=== PATIENT | male | born 1945 | race Caucasian/White ===

== ENCOUNTER → 2025-04-14 12:02 | Outpatient (REF) | payer MEDICARE, OTHER, SELFPAY ==
[2025-04-14 12:46] LABS: % Basophils 0.7 % (0-2); % Eosinophils 0.9 % (0-6); % Immature Granulocytes 0.4 % (0-0.5); % Lymphocytes 22.3 % (20.5-51.1); % Monocytes 6.6 % (1.7-9.3); % Neutrophils 69.1 % (42.2-75.2); Absolute Monocytes 0.3 10^3/uL (0.1-0.6); Absolute Neutrophils 3.2 10^3/uL (1.4-6.5); Hematocrit 39.2 % (39.0-52.0); Hemoglobin 13.2 g/dL (13.0-18.0); Mean Corp Hgb Conc. 33.7 g/dL (33.0-37.0); Mean Corpuscular Hgb 31.6 pg (27.0-31.0); Mean Corpuscular Volume 93.8 fL (80.0-94.0); Mean Platelet Volume 8.9 fL (7.4-10.4); Nucleated Red Blood Cells % 0 % (-); Platelet Count 157 10^3/uL (130-400); Red Blood Cell Count 4.18 10^6/uL (4.70-6.10); Red Cell Dist. Width 17.1 % (11.5-14.5); White Blood Cell Count 4.6 10^3/uL (4.8-10.8)
[2025-04-14 12:53] LABS: PT 17.6 Sec (11.4-14.6)
[2025-04-14 13:03] LABS: ALT (SGPT) 13 U/L (0-50); AST (SGOT) 20 U/L (17-59); Albumin 4.7 g/dl (3.5-5.0); Alkaline Phosphatase 66 U/L (38-126); Blood Urea Nitrogen 16 mg/dl (9-20); Calcium 10.2 mg/dl (8.4-10.2); Carbon Dioxide 29 mmol/L (22-30); Chloride 101 mmol/L (98-107); Glucose 118 mg/dl (70-99); Magnesium 1.6 mg/dl (1.6-2.3); Potassium 4.7 mmol/L (3.5-5.1); Sodium 137 mmol/L (135-145); Total Bilirubin 1.4 mg/dl (0.2-1.3); Total Protein 7.7 g/dl (6.3-8.2); eGFR > 60.00
== END ==
LOC: SDSPAT 12:02
PROVIDERS: ATTENDING PHYSICIAN Internal Medicine Cardiovascular Disease; FAMILY PHYSICIAN Family Medicine; OTHER PHYSICIAN Internal Medicine
DX: I48.91 Unspecified atrial fibrillation (principal)
CPT/HCPCS: 36415; 75572; 80053; 83735; 85025; 85610; 86850; 86900; 86901; 93005; Q9967

== ENCOUNTER 2025-05-09 16:13 | Inpatient (IN) | payer MEDICARE, OTHER, SELFPAY ==
[2025-05-09] VITALS (17 sets, daily range): BP systolic 121–147; BP diastolic 70–107; BMI 28.1
--- NOTE | 2025-05-09 10:58 | ITS.CL.ABL ---
Lead Setter - Ablation
Ablation
Procedure Report:
Primary Sql Server Bi Developer: Dr Wil Bowers
Procedure Date: 05/09/2025
Patient History:
Patient is a pleasant 79-year-old male with a past medical history significant for AAA (thoracic), hypertension, history PE, PVC, hyperlipidemia, HFpEF, and symptomatic persistent atrial fibrillation..
See H&P for complete details.
Indication:
Symptomatic persistent atrial fibrillation
Heart failure
Arrhythmia Specific History:
Prior Medical Therapies for Rate and Rhythm Control:
X Beta-rosario
[ ] Calcium channel-rosario
[ ] Amiodarone
[ ] Dronederone
[ ] Sotalol
[ ] Flecainide
[ ] Dofetilide
[ ] Options limited by bradycardia
[ ] Options limited by comorbid renal disease
Prior Procedural Therapies for AF/AFL:
[ ] Cardioversion
[ ] Pulmonary Vein Isolation
[ ] Posterior Wall Isolation
[ ] Additional lines (Specify)
[ ] Surgical Marcos-MAZE or PVI (Specify)
Procedure Performed:
X AF ablation procedure (62432) -- includes LA/CS pacing, trans-septal, 3D mapping, + ICE
[ ] +IV drug (30427)
[ ] +Other Arrhythmia (67118)
X +Other AF Line/ablation (43517 x2) -- floor line, roof line, posterior wall isolation
Risks and expected recovery has been explained in detail. Alternative options have been explored, and in a shared-decision making fashion we have decided that this was the most appropriate procedure.
Method
NPO status confirmed. Grounding pad applied. Defibrillator pads applied. Continuous surface ECG, pulse oximetry, and blood pressure were monitored. Procedure was performed under general anesthesia, with anesthesia services.
Both groins were clipped, prepped with Chloraprep, and draped in sterile fashion. Time out was called. Local anesthesia administered with bupivacaine. The right femoral vein was accessed for catheter placement, using ultrasound guidance (images
saved to record), micro-puncture needle/wire, and modified seldinger technique. 3 sheaths were placed. The following catheters were used:
[ ] Tacticath SE (D/F Curve) ablation catheter
X Viewflex 9Fr ICE catheter
X Inquiry decapolar 6Fr diagnostic catheter
[ ] CRD Hex 6Fr
[ ] Arctic Front Advance Cryoballoon ([ ]28mm[ ]23mm)
[ ] Achieve Advance mapping catheter ([ ]15mm[ ]20mm)
X FlexCath Contour 10 Fr with PulseSelect PFA Catheter
X Advisor HD Grid Mapping Catheter, SE
[ ] AcusWhere Was it Filmed AcuNav 8 Fr ICE catheter
[ ]Other: [ ]
Intracardiac ultrasound (ICE) was carefully advanced into the right atrium to guide sheath placement over a J-wire, catheter placement, guide trans-septal puncture, identify potential complications, identify anatomic structures and ensure proper
contact between ablation catheter and tissue.
Heparin was given prior to trans-septal puncture. Heparin was given to achieve and maintain a target ACT of 300-400 seconds throughout the procedure.
Trans-septal access was performed under ICE guidance. The trans-septal puncture was performed with a SafeSept wire through a Brockenbrough needle assembly through the steerable sheath. The wire was visualized as it entered the LSPV and system
advanced under ICE guidance and fluoroscopy into the LA. The Brockenbrough needle assembly, SafeSept wire and sheath dilator were removed under negative pressure. LA pressure was measured and recorded.
ICE and 3D mapping was performed to identify relevant cardiac structures. A careful 3D map was created to assess for regions of low-voltage and abnormal electrogram signals using HD grid mapping catheter and PulseSelect catheter. Additional mapping
was performed as outlined below.
Prior to ablation, glycopyrrolate was provided. PulseSelect catheter was advanced over J-wire to the ostium of each vein. Pulmonary vein isolation was performed with ostial and antral lesions in a circumferential manner. Contact was visualized via
EAM, ICE, fluoroscopy, and EGM signals. Posterior wall isolation was performed by anchoring the J-wire within the pulmonary vein and placing the PulseSelect catheter in contact with the posterior wall as visualized by aforementioned methods.
Following completion of ablation lesions, sinus rhythm was restored with a 200J synchronized DCCV. However, early recurrence to AF noted. Repeat synchronized 300J DCCV resulted in similar recurrence of AF. Mapping in AF was performed with HD grid to
reassess for area of early reconnection. In AF, pulmonary veins and posterior wall did not demonstrate EGM evidence of AF. Repeat synchronized 360J DCCV performed which maintained SR. SR remained through the remainder of the case. A post-ablation
voltage/activation map was performed in sinus rhythm. Entrance and exit block were confirmed for each vein and the posterior wall.
Catheter and sheath were removed from the left atrium and post-ablation intracardiac echo evaluation was consistent with pre-ablation with no changes and no pericardial effusion and there is no left atrial thrombus or left ventricle thrombus seen.
Electrophysiology study was performed. Hemostasis was obtained with figure of 8 stitch for each groin and with manual pressure. Protamine was used for reversal.
Estimated Blood Loss
5 mL
Complications
None
Fluoroscopy: 1.4 minutes; 5.21 mGy; DAP 0.631
LA Pressure: Pre 8 mmHg, post 6 mmHg
Baseline Intervals:
Rhythm: AF
QRS: 85 ms
QT: 400 ms
Post-Procedure Intervals:
SD: 122 ms
QRS: 89 ms
QT: 442 ms
QTc: 529 ms
A-A: 698 ms
R-R: 698 ms
AVWB: 470 ms
AVNERP: 600/400 ms
AERP: 600/200 ms
Recommendations
- Bedrest with straight-leg precautions as ordered
- Anticipate same day discharge if patient meeting clinical metrics
- Resume home medications as indicated
- Ok to resume anticoagulation tonight if patient and groin sites stable
- PPI daily for 30 days
- Plan for follow-up in office as scheduled
Paras Ferguson, , FACC, RS
Clinical Cardiac Speedboat Driver
cc: Dr Wil Bowers; Dr Shana Luna
[2025-05-09 11:49] LABS: ACT-LR - POC 324 Seconds (116-155)
[2025-05-09 12:08] LABS: ACT-LR - POC 308 Seconds (116-155)
[2025-05-09 12:35] LABS: ACT-LR - POC 326 Seconds (116-155)
[2025-05-09 13:05] LABS: ACT-LR - POC 137 Seconds (116-155)
--- NOTE | 2025-05-09 13:35 | PTCARENOTE ---
Post procedure EKG showing A fib with PVCs, Linh WHITAKER made aware- evaluating EKG and will speak with Dr Ferguson
[2025-05-09] MEDS: ANESTHETIC LOZENGE 1 LOZENGE PO ×2 (14:22→22:26)
--- NOTE | 2025-05-09 15:24 | W.CARD.TIKOS ---
Initiate Tikosyn
-
I verify that the patient has not taken any verapamil (Isoptin/Calan), ketoconazole (Nizoral), cimetidine (Tagamet), trimethoprim (Trimpex), trimethoprim/sulfamethoxazole (Bactrim), megesterol (Megace), prochlorperazine (Compazine),
hydrochlorothiazide (HCTZ), dolutegravir (Tivicay) or any Class I or Class III anti-arrhythmic within the last three days
AND
I verify that the patient has not taken amiodarone within the last THREE months, or that the patient's amiodarone plasma concentration is <0.3 mcg/mL.
Does patient have a Ventricular Conduction Abnormality: No
I have assessed the baseline QTc interval (using QT for heart rate less than 60 bpm) and deemed the patient is appropriate for Dofetilide therapy. I understand that Tikosyn is contraindicated if the QTc is >440msec (500msec in patients with
ventricular conduction abnormalities).
Baseline QTc (in msec): 513
QTc interval is greater than 440msec without conduction abnormality OR greater than 500msec with a conduction abnormality, but acceptable to proceed per Cardiology attending.
Ordering Physician: Naseem Ferguson
--- NOTE | 2025-05-09 16:00 | PTCARENOTE ---
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 Pt AAOX3- denies pain. resting comfortably in bed. currently bedrest- figure 8 suture intact. Afib with frequent pvcs on telemetry, heart rate 70-80s. pulses palpable. +1 edema in lower
extremties. pt on room air, sat 96%. lung sounds clear. active bowel sounds. voiding without difficulty. see worklist for full nursing assessment and interventions. pt updated on plan of care, oriented to room and unit.
[2025-05-09] MEDS: TIKOSYN 500 MCG PO (18:06)
[2025-05-09] MEDS: ELIQUIS 5 MG PO (20:03)
[2025-05-09] MEDS: TYLENOL 650 MG PO (20:17)
--- NOTE | 2025-05-09 22:04 | PTCARENOTE ---
Assumed care on pt at 1900, aaox3, denies pain or SOB, ambulating self in room with no c/o dizziness. Afib on the monitor, HR 70-90's. R groin site with CDI dressing, no swelling or ecchymosis noted, good distal pulses. EKG post tikosyn obtained.
Call ventura within reach, POC ongoing.
[2025-05-09] MEDS: DESYREL 25 MG PO (22:26)
[2025-05-10] VITALS (7 sets, daily range): BP systolic 111–128; BP diastolic 59–94; BMI 28.1
[2025-05-10] MEDS: MAALOX 30 ML PO (03:48)
[2025-05-10 04:16] LABS: Hematocrit 33.3 % (39.0-52.0); Hemoglobin 11.9 g/dL (13.0-18.0); Mean Corp Hgb Conc. 35.7 g/dL (33.0-37.0); Mean Corpuscular Hgb 33.2 pg (27.0-31.0); Mean Platelet Volume 9.3 fL (7.4-10.4); Platelet Count 111 10^3/uL (130-400); Red Blood Cell Count 3.58 10^6/uL (4.70-6.10); Red Cell Dist. Width 16.8 % (11.5-14.5)
[2025-05-10 04:43] LABS: Blood Urea Nitrogen 16 mg/dl (9-20); Calcium 9.4 mg/dl (8.4-10.2); Carbon Dioxide 22 mmol/L (22-30); Chloride 106 mmol/L (98-107); Estimated Creatinine Clearance 87 ml/min; Glucose 118 mg/dl (70-99); Potassium 4.2 mmol/L (3.5-5.1); Sodium 133 mmol/L (135-145); eGFR > 60.00
[2025-05-10] MEDS: TIKOSYN 500 MCG PO (05:59)
--- NOTE | 2025-05-10 06:22 | PTCARENOTE ---
Pt remained Afib with frequent pvc's overnight, HR 40's. Pt with hx sleep apnea, refusing Cpap at night, 2L O2 applied via NC. Pox 99%. Right groin dsg remains clean and intact. 2nd dose of Tikosyn administered this morning at 0600.
--- NOTE | 2025-05-10 08:00 | PTCARENOTE ---
Assumed care of pt from prev nsg shift; Pt AAOX3 w/no c/o CP or SOB. Pt's VSS w//HR in the 60's-70's & BP 128/64 this AM. Pt is Afib at a controlled rate on telemetry monitoring. Pt rec'd dose #2 of Tikosyn from prev nsg shift at 0600. Discussed
plan of care w/pt incl EKG 2 hrs post Tikosyn does. Pt verbalized his understanding. Pt w/call ventura within reach. Plan of care ongoing.
[2025-05-10] MEDS: PROTONIX 40 MG PO (08:34)
[2025-05-10] MEDS: TOPROL XL 50 MG PO (08:34)
[2025-05-10] MEDS: LIPITOR 40 MG PO (08:35)
[2025-05-10] MEDS: COZAAR 50 MG PO (08:35)
[2025-05-10] MEDS: ELIQUIS 5 MG PO ×2 (08:35→20:40)
[2025-05-10] MEDS: ALDACTONE 25 MG PO (08:35)
--- NOTE | 2025-05-10 09:35 | W.PN.CARDCBS ---
Addendum entered and electronically signed by Paras Ferguson DO 05/10/25 14:02:
I saw and examined the patient.
The Sodder's note was reviewed and I agree with the note.
Comment:
Patient seen and examined. No acute events overnight. Patient resting comfortably in bed without discomfort. Patient denies chest pain, shortness of breath, palpitations, or weakness.
Telemetry demonstrates AF with PVCs and brief NSVT; asymptomatic
GEN: No distress, awake, alert, oriented x3
HEENT: supple, anicteric, mmm, eomi
LUNGS: CTA B/L, no wheezes/rales
CV: Irreg, S1/S2, no murmur
ABD: soft, BS+, NT/ND
EXT: No cyanosis, clubbing, edema
NEURO: Gross non-focal
SKIN: Warm, pink, dry. No rash. R groin site c/d/i, soft, NTTP
EKG shows AF with PVCs; repeat this morning shows QT/QTc 530/488 on 500 mcg BID
A/P as below
Reduce dofetilide to 250 mcg BID
Reduce metoprolol succinate to 25 mg daily
Continue OAC with apixaban
Monitor on telemetry
DCCV
Original Note:
Today's Communication / Plan
-
continue tikosyn, reduce dose to 250mcg Q12H due to prolonged QTc, follow by EKG
reduce toprol dose to 25mg daily due to tay
continue eliquis
CV in AM
Impression / Plan
-
Primary Paralegal Legal Secretary: Dr. Bowers
Primary EP: Dr. Ferguson
Assessment:
Persistent atrial fibrillation
Status post cardioversion 02/2025
Oral anticoagulation with Eliquis
Status post PVI 05/09/25
afib post PVI s/p unsuccessful CV 05/09/25
tikosyn loading
PVCs
Sinus bradycardia
Hypertension
Hyperlipidemia
Thoracic aortic aneurysm
Chronic diastolic congestive heart failure
Mild to moderate AI
History of PE
VILLA, previously on CPAP
GERD
BPH
Daily alcohol intake
Echocardiogram 08/09/2024. Ejection fraction is 54%. Normal left ventricular size, wall thickness and function. Normal right ventricular size and function. Mild left atrial and right atrial dilation. RVSP 31 mmHg. Ascending aortic dilation. Mild to
moderate aortic insufficiency. Mitral annular calcification mild mitral regurgitation.
Plan:
- Status post PVI 05/09/2025. Was noted to be in A-fib post ablation and underwent unsuccessful cardioversion x 2, third shock was temporarily successful in converting patient to sinus rhythm, however reverted to A-fib in recovery area. Options
were discussed with patient and he opted to stay for Tikosyn loading
- QTc appears prolonged by EKG this morning, so will reduce Tikosyn dose to 250 mcg every 12 hours
- Also noted to have some bradycardia with heart rates into the 30s at times. Will reduce outpatient Toprol dose to 25 mg daily and follow
- He has known obstructive sleep apnea, however has upcoming appointment to get refitted for CPAP
- Continue Eliquis 5 mg twice daily
- will plan for CV in AM if remains in afib
- appears euvolemic. continue po lasix 20mg BID
- changed diet to regular at patient request
- d/w nursing
Progress Note - Paralegal Legal Secretary
Subjective
Date of Service: May 10, 2025
no complaints
Objective
Labs:
05/10/25 04:00
05/10/25 04:00
Labs
Hgb 11.9 g/dL (13.0-18.0) L 05/10/25 04:00
Hct 33.3 % (39.0-52.0) L 05/10/25 04:00
Plt Count 111 10^3/uL (130-400) L 05/10/25 04:00
Sodium 133 mmol/L (135-145) L 05/10/25 04:00
Potassium 4.2 mmol/L (3.5-5.1) 05/10/25 04:00
BUN 16 mg/dl (9-20) 05/10/25 04:00
Creatinine 0.7 mg/dL (0.7-1.3) 05/10/25 04:00
Glucose 118 mg/dl (70-99) H 05/10/25 04:00
Vital Signs and I&O:
Vital Signs
Temp Pulse Resp BP Pulse Ox
98.2 F 71 18 118/71 100
05/10/25 07:44 05/10/25 07:44 05/10/25 07:44 05/10/25 04:03 05/10/25 07:44
Vital Signs
Temp Pulse Resp BP Pulse Ox
98.2 F 71 18 118/71 100
05/10/25 07:44 05/10/25 07:44 05/10/25 07:44 05/10/25 04:03 05/10/25 07:44
Intake & Output
05/08/25 05/09/25 05/10/25 05/11/25
07:59 07:59 07:59 07:59
Intake Total 1959
Balance 1959
Physical Exam
Physical Exam
GEN: No distress, awake, alert, oriented x3
HEENT: supple, anicteric, mmm, eomi
LUNGS: CTA B/L, no wheezes/rales
CV: Irreg, S1/S2, no murmur
ABD: soft, BS+, NT/ND
EXT: No cyanosis, clubbing, edema
NEURO: Gross non-focal
SKIN: Warm, pink, dry. No rash. R groin site c/d/i, soft, NTTP
[2025-05-10] MEDS: TYLENOL 650 MG PO ×3 (11:05→20:44)
--- NOTE | 2025-05-10 13:53 | CM ---
spoke to pt in room, he is prev indep, lives with his in a 2 story home with one step to enter. he denies any dc planning needs or dme's. plan is for dc to home after dofetilide loading.
[2025-05-10] MEDS: TIKOSYN 250 MCG PO (17:13)
--- NOTE | 2025-05-10 19:56 | PTCARENOTE ---
Pt remains on tikosyn load, 3rd dose given at 1715, 2hr post EKG obtained and reading sinus tay with 1st degree AV block and occ PVC's, QT/QTc 528/500. Pt resting w/o any complaints at this time, VSS. SB on the monitor HR 50-60's. Call ventura within
reach.
[2025-05-10] MEDS: LASIX 20 MG PO (20:40)
[2025-05-10] MEDS: ANESTHETIC LOZENGE 1 LOZENGE PO (20:44)
[2025-05-10] MEDS: DESYREL 25 MG PO (21:54)
[2025-05-11 03:27] VITALS: BP 117/72
[2025-05-11] MEDS: TIKOSYN 250 MCG PO ×2 (04:58→15:55)
[2025-05-11 05:00] VITALS: BMI 28.0
--- NOTE | 2025-05-11 06:27 | PTCARENOTE ---
Pt SB with 1st degree HB and on the monitor, with frequent 2.0-2.7 sec pauses. HR 50's, 2L O2 via NC during sleep. Tikosyn #4 dose given this morning at 0500.
[2025-05-11 06:55] VITALS: BP 134/90
--- NOTE | 2025-05-11 08:18 | PTCARENOTE ---
Assumed care of pt from prev nsg shift; Pt AAOX3 w/no c/o CP or SOB. Pt's VSS w//HR in the 60's-70's & BP 128/64 this AM. Pt converted to SR yest & remains SR on telemetry monitoring this am. Pt rec'd dose #4 of Tikosyn from prev nsg shift & will
receive dose #5 later this afternoon. Pt anticipating D/C later this evening. Pt w/call ventura within reach. Plan of care ongoing.
--- NOTE | 2025-05-11 08:47 | W.PN.CARDCBS ---
Addendum entered and electronically signed by Makenzie Tubbs PA-C 05/12/25 16:16:
[id number]
Addendum entered and electronically signed by Paras Ferguson DO 05/11/25 10:15:
I saw and examined the patient.
The Packaging Operator's note was reviewed and I agree with the note.
Comment:
Patient seen and examined. No acute events overnight. Patient resting company in bed. Patient has chest pain, shortness breath, palpitations, weakness.
GENERAL: no acute distress
EYE: sclera anicteric
NECK: Supple, no JVD, no carotid bruit appreciated
ENT: normal nose, moist mucosal membranes
CARDIAC: Regular rate and rhythm, +S1/S2, no murmur, rubs, or gallops
CHEST/PULMONARY: Normal effort, clear breath sounds
ABDOMEN: Soft, without focal tenderness or distention
NEUROLOGICAL: Alert and oriented x3
SKIN: Warm and dry, no rash
PSYCH: Normal and appropriate interaction.
Telemetry conversion of AF to sinus rhythm on 05/10/2025 spontaneously remains in sinus rhythm rare PVCs
EKG this morning sinus bradycardia first-degree block with PVC/PAC; QT/QTc 478/493 ms (no significant change)
Patient bandar stable status post PVI/posterior wall isolation with possible ablation
Remains in sinus rhythm following spontaneous cardioversion on dofetilide; tolerating dofetilide 250 mcg twice daily with stable QT/QTc
If remains stable after next dose and EKG, will plan for discharge
Continue to monitor on telemetry
Encourage alcohol reduction, sleep apnea testing
Original Note:
Today's Communication / Plan
-
back in SR
continue tikosyn 250mcg Q12H
plan for DC later today
Impression / Plan
-
Primary Garnisher: Dr. Bowers
Primary EP: Dr. Ferguson
Assessment:
Persistent atrial fibrillation
Status post cardioversion 02/2025
Oral anticoagulation with Eliquis
Status post PVI 05/09/25
afib post PVI s/p unsuccessful CV 05/09/25
tikosyn loading
PVCs
Sinus bradycardia
Hypertension
Hyperlipidemia
Thoracic aortic aneurysm
Chronic diastolic congestive heart failure
Mild to moderate AI
History of PE
VILLA, previously on CPAP
GERD
BPH
Daily alcohol intake
Echocardiogram 08/09/2024. Ejection fraction is 54%. Normal left ventricular size, wall thickness and function. Normal right ventricular size and function. Mild left atrial and right atrial dilation. RVSP 31 mmHg. Ascending aortic dilation. Mild to
moderate aortic insufficiency. Mitral annular calcification mild mitral regurgitation.
Plan:
- Status post PVI 05/09/2025. Was noted to be in A-fib post ablation and underwent unsuccessful cardioversion x 2, third shock was temporarily successful in converting patient to sinus rhythm, however reverted to A-fib in recovery area. Options
were discussed with patient and he opted to stay for Tikosyn loading
- converted to SR 05/10 and remains in SR with PVCs on review of tele overnight
- QTc stable by EKG this AM, follow. continue tikosyn 250mcg Q12H
- continue reduced dose toprol 25mg daily
- He has known obstructive sleep apnea, however has upcoming appointment to get refitted for CPAP
- Continue Eliquis 5 mg twice daily
- appears euvolemic. continue po lasix 20mg BID
- plan for DC later this evening after 5th dose if QTc remains stable
- OP cardiac follow up arranged
- d/w nursing
Progress Note - Garnisher
Subjective
Date of Service: May 11, 2025
no complaints. eager for DC
Objective
Labs:
05/10/25 04:00
05/10/25 04:00
Labs
Hgb 11.9 g/dL (13.0-18.0) L 05/10/25 04:00
Hct 33.3 % (39.0-52.0) L 05/10/25 04:00
Plt Count 111 10^3/uL (130-400) L 05/10/25 04:00
Sodium 133 mmol/L (135-145) L 05/10/25 04:00
Potassium 4.2 mmol/L (3.5-5.1) 05/10/25 04:00
BUN 16 mg/dl (9-20) 05/10/25 04:00
Creatinine 0.7 mg/dL (0.7-1.3) 05/10/25 04:00
Glucose 118 mg/dl (70-99) H 05/10/25 04:00
Vital Signs and I&O:
Vital Signs
Temp Pulse Resp BP Pulse Ox
97.8 F 60 16 134/90 100
05/11/25 07:31 05/11/25 07:30 05/11/25 07:31 05/11/25 06:55 05/11/25 07:31
Vital Signs
Temp Pulse Resp BP Pulse Ox
97.8 F 60 16 134/90 100
05/11/25 07:31 05/11/25 07:30 05/11/25 07:31 05/11/25 06:55 05/11/25 07:31
Intake & Output
05/09/25 05/10/25 05/11/25 05/12/25
07:59 07:59 07:59 07:59
Intake Total 1959 960 / 960
Balance 1959 960 / 960
Physical Exam
Physical Exam
GEN: No distress, awake, alert, oriented x3
HEENT: supple, anicteric, mmm, eomi
LUNGS: CTA B/L, no wheezes/rales
CV: Reg with ectopy, S1/S2, no murmur
ABD: soft, BS+, NT/ND
EXT: No cyanosis, clubbing, edema
NEURO: Gross non-focal
SKIN: Warm, pink, dry. No rash
--- NOTE | 2025-05-11 08:58 | W.DS.TRANS ---
DC Summary - Retail Equipment Associate
-
Discharge Instructions:
Discharge Diagnosis/Procedures AFib, s/p ablation, tikosyn load
Diet Low Cholesterol,Low Sodium
Driving Restrictions No driving for 24 hours
Specialty Instructions Weigh Daily
Instructions:
Stand-Alone Forms: DC Instructions- Cath/EP Lab
Changes to Home Medications: Yes
Discharge Medications:
DC Medications w/original date entered in [email or web address]
acetaminophen 500 mg tablet 1,000 mg PO Q6H PRN pain 04/07/25
apixaban 5 mg tablet (Eliquis) 5 mg PO BID 04/07/25
atorvastatin 40 mg tablet 40 mg PO DAILY 04/07/25
losartan 50 mg tablet 50 mg PO DAILY 04/07/25
omeprazole 40 mg capsule,delayed release 40 mg PO DAILY 04/07/25
spironolactone 25 mg tablet 25 mg PO DAILY 04/07/25
trazodone 50 mg tablet 25 mg PO HS 04/07/25
furosemide 20 mg tablet 20 mg PO BID 05/09/25
dofetilide 250 mcg capsule 250 mcg PO Q12H #60 caps 05/11/25
metoprolol succinate 25 mg tablet,extended release 24 hr 25 mg PO DAILY #1 tab 05/11/25
Home Medication Changes
tikosyn is new
toprol was decreased to 25mg daily
Pending Results: No
[2025-05-11] MEDS: COZAAR 50 MG PO (09:14)
[2025-05-11] MEDS: PROTONIX 40 MG PO (09:14)
[2025-05-11 10:47] VITALS: BP 111/100
[2025-05-11] MEDS: TOPROL XL 25 MG PO (11:13)
[2025-05-11] MEDS: LASIX 20 MG PO ×2 (11:13→15:16)
[2025-05-11] MEDS: TYLENOL 650 MG PO ×2 (11:13→15:16)
[2025-05-11] MEDS: ELIQUIS 5 MG PO (11:13)
[2025-05-11] MEDS: ALDACTONE 25 MG PO (11:13)
[2025-05-11] MEDS: LIPITOR 40 MG PO (11:13)
--- NOTE | 2025-05-11 11:13 | CM ---
CM following for DC planning needs.
Met w/ patient at bedside. He is anticipating DC and feels prepared to leave.
He offers no concerns or needs at this time. Will be driving to [facility] later today.
I called patient's pharmacy, they do NOT have Dofetilide in stock but will order and it will be in stock by tomorrow. We will send him home with x3 d supply.
Plan is for home, no needs.
[2025-05-11 14:57] VITALS: BP 143/82
--- NOTE | 2025-05-11 18:25 | PTCARENOTE ---
Completed pt's ordered 2hr post dose #5 Tikosyn EKG; [id number]. Pt continues to be in SR w/1st deg AVB & PVC's. Pt's IV line & telemetry removed. D/C instructions discussed w/pt & pt's spouse. Pt escorted out via WC by staff w/ driving pt to their
[facility] in [place]. Pt left w/personal belongins incl cell phone & correspondence analyst & 3 doses of Tikosyn to carry pt over until his pharmacy has his prescription.
== END 2025-05-11 18:25 | disposition home or self-care (01) | DRG 274 ==
LOC: IVU 16:13
PROVIDERS: Nurse Practitioner; ADMITTING PHYSICIAN Internal Medicine Cardiovascular Disease; FAMILY PHYSICIAN Family Medicine
PROC: 5A2204Z Restoration of Cardiac Rhythm, Single (ICD-10-PCS; 2025-05-09)
PROC: 3E0DXRZ Introduction of Antiarrhythmic into Mouth and Pharynx, External Approach (ICD-10-PCS; 2025-05-09)
PROC: 02583ZF Destruction of Conduction Mechanism using Irreversible Electroporation, Percutaneous Approach (ICD-10-PCS; 2025-05-09)
PROC: 02K83ZZ Map Conduction Mechanism, Percutaneous Approach (ICD-10-PCS; 2025-05-09)
PROC: 4A0234Z Measurement of Cardiac Electrical Activity, Percutaneous Approach (ICD-10-PCS; 2025-05-09)
PROC: 4A023FZ Measurement of Cardiac Rhythm, Percutaneous Approach (ICD-10-PCS; 2025-05-09)
DX: I48.19 Other persistent atrial fibrillation (principal); I50.32 Chronic diastolic (congestive) heart failure; I49.3 Ventricular premature depolarization; I11.0 Hypertensive heart disease with heart failure; E78.5 Hyperlipidemia, unspecified; I71.20 Thoracic aortic aneurysm, without rupture, unspecified; I35.1 Nonrheumatic aortic (valve) insufficiency; I25.10 Atherosclerotic heart disease of native coronary artery without angina pectoris; G47.33 Obstructive sleep apnea (adult) (pediatric); K21.9 Gastro-esophageal reflux disease without esophagitis; K76.0 Fatty (change of) liver, not elsewhere classified; R00.1 Bradycardia, unspecified; N40.0 Benign prostatic hyperplasia without lower urinary tract symptoms; Z85.828 Personal history of other malignant neoplasm of skin; Z87.19 Personal history of other diseases of the digestive system; Z79.01 Long term (current) use of anticoagulants; Z86.711 Personal history of pulmonary embolism
CPT/HCPCS: 80048; 85027; 85347; 86900; 86901; 93005; 93656; 93657; C1730; C1732; C1733; C1766; C1769; C1892; C1894